=== PATIENT | female | born 2000 | race Two or more races ===

== ENCOUNTER 2023-09-06 01:43 | Emergency (ER) | payer OTHER ==
[~2023-09-06] VITALS: Ht 160 cm; Wt 58.1 kg
[2023-09-06 02:47] LABS: HEMATOCRIT 38.3 % (36.0-45.00); HEMOGLOBIN 12.6 g/dL (12.0-15.00); MEAN CELL VOLUME 84.5 fL (80.00-100.00); MEAN CORPUSCULAR HEMOGLOBIN 27.8 pg (27.00-32.0); MEAN CORPUSCULAR HGB CONC 32.9 g/dl (32.0-36.0); PLATELET COUNT 329 K/uL (150-450); RED BLOOD COUNT 4.53 M/uL (4.00-6.00); RED CELL DISTRIBUTION WIDTH 12.7 % (11.5-14.5)
[2023-09-06 03:00] LABS: CALCIUM 9.1 mg/dL (8.5-10.1); CREATININE SERUM 0.68 mg/dL (0.55-1.02); GFR 107.22; POTASSIUM 3.54 mEq/L (3.5-5.1)
[2023-09-06 03:18] LABS: URINE APPEARANCE Clear; URINE BILIRRUBIN Negative (NEGATIVE); URINE BLOOD Negative; URINE COLOR Yellow; URINE GLUCOSE Negative (NEGATIVE); URINE LEUKOCYTE Small; URINE NITRATE Negative; URINE PROTEIN Negative (NEGATIVE); URINE UROBILINOGEN 0.2 E.U./dl
[2023-09-06 03:21] LABS: URINE BACTERIA 3992.6 uL (0.0-1933); URINE EPITHELIAL CELLS 68.3 uL (0.0-38.8); URINE RBC 18.6 uL (0.0-20.8); URINE WBC 76.5 uL (0.0-23.2)
[2023-09-06] MEDS ORDERED: MECLIZINE HCL25 MG PO (05:43)
[2023-09-06] MEDS ORDERED: KETO10TA2 PO (05:44)
== END 2023-09-06 06:11 ==
LOC: ER 01:43
PROVIDERS: General Practice
DX: R51.9 Headache, unspecified (principal); R42 Dizziness and giddiness